=== PATIENT | male | born 1945 | race Caucasian/White ===

== ENCOUNTER 2020-01-31 22:30 | Emergency (ER) | payer MEDICARE, OTHER, SELFPAY ==
[2020-01-31 22:34] VITALS: BP 162/105; PULSE 85; RESP 16; TEMP 36.6; O2SAT 97; BMI 33.6
[2020-01-31 22:47] VITALS: PULSE 83; RESP 17; O2SAT 97
--- NOTE | 2020-01-31 22:47 | DI.RAD.S_ITS ---
PROCEDURE: XR CHEST 1V INDICATIONS: chest pain, Shortness of breath, fatigue TECHNIQUE: One view of the chest was acquired. COMPARISON: None. FINDINGS: Surgical changes and devices: None. Lungs and pleura: Lungs are clear. No pleural effusions or pneumothorax. Mediastinum: Mediastinal contours appear normal. Heart size is normal. Bones and chest wall: No suspicious bony lesions. Overlying soft tissues appear unremarkable. IMPRESSION: No acute cardiopulmonary disease process. Dictated by: Becky Javier MD, PhD on 02/01/2020 at 7:43 Approved by: Becky Javier MD, PhD on 02/01/2020 at 7:44
[2020-01-31] MEDS: ASPIRIN 81 MG CHEW TAB 324 MG PO (22:57)
[2020-01-31] MEDS: SODIUM CHLORIDE 0.9% 1,000 ML 150 ML IV (22:57)
[2020-01-31 23:00] VITALS: BP 116/87; PULSE 78; RESP 11; O2SAT 95
[2020-01-31 23:02] LABS: Add Manual Diff / Slide Review NO; Basophils Absolute Auto 0 /uL (0-100); Basophils Percent Auto 0.8 % (0-2); Eosinophils Absolute Auto 100 /uL (0-450); Eosinophils Percent Auto 2.2 % (2-4); Hematocrit 43.6 % (41-53); Hemoglobin 14.7 g/dL (13.5-17.5); Lymphocytes Absolute Auto 1500 /uL (1100-4500); Lymphocytes Percent Auto 22.4 % (25-40); Mean Corpuscular HGB Conc 33.8 % (30-36); Mean Corpuscular Hemoglobin 32.7 PG (26-34); Mean Corpuscular Volume 96.8 fL (80-100); Monocytes Absolute Auto 600 /uL (0-900); Monocytes Percent Auto 9.3 % (3-14); Neutrophils Absolute Auto 4200 /uL (1500-7000); Neutrophils Percent Auto 65.3 % (50-75); Platelet Count 252 X10^3/uL (150-400); White Blood Cell Count 6.5 X10^3/uL (4.5-11.0)
[2020-01-31 23:09] LABS: Creatine Kinase 161 U/L (55-170)
[2020-01-31 23:10] LABS: Alanine Aminotransferase 31 IU/L (<50); Albumin 4.5 g/dL (3.5-5.0); Albumin Globulin Ratio 1.4 (1.0-2.8); Alkaline Phosphatase 61 U/L (38-126); Aspartate Aminotransferase 32 IU/L (17-59); BUN Creatinine Ratio 17.6 (6-22); Bilirubin Total 0.9 mg/dL (0.2-1.3); Blood Urea Nitrogen 12 mg/dL (9-20); Calcium 9.2 mg/dL (8.4-10.2); Carbon Dioxide 27 mmol/L (22-32); Chloride 105 mmol/L (98-107); Estimated Glomerular Filt Rate > 60.0 mL/min (>60); Globulin 3.2 g/dL (1.7-4.1); Glucose 113 mg/dL (80-110); HEMOLYSIS < 15 (0-50); Lipase 30 U/L (23-300); Potassium 3.9 mmol/L (3.4-5.1); Sodium 136 mmol/L (137-145); Total Protein 7.7 g/dL (6.3-8.2)
[2020-01-31 23:21] LABS: NT-proBNP (BNP-Adult 18+) 362 pg/mL (<450); Troponin I < 0.012 ng/mL (0.01-0.034)
[2020-01-31 23:25] LABS: CKMB % Relative Index 1.6 % (1.5-5.0); Creatine Kinase MB 2.59 ng/mL (<2.37)
[2020-01-31 23:30] VITALS: BP 110/80; PULSE 71; RESP 11; O2SAT 92
[2020-02-01] VITALS: BP 124/88; PULSE 69; RESP 12; O2SAT 95
[2020-02-01 00:29] VITALS: PULSE 75; RESP 12; O2SAT 94
[2020-02-01 00:30] VITALS: BP 136/87; PULSE 70; RESP 10; O2SAT 95
[2020-02-01 01:00] VITALS: BP 129/86; PULSE 64; RESP 11; O2SAT 95
[2020-02-01 01:20] LABS: Troponin I < 0.012 ng/mL (0.01-0.034)
--- NOTE | 2020-02-01 01:21 | ED_ITS ---
HPI - General Adult General Chief complaint: Hypertension Stated complaint: elevated pressure Time Seen by Provider: 01/31/20 22:35 Source: patient and family Mode of arrival: Ambulatory Limitations: no limitations History of Present Illness HPI narrative: 74M nonsmoker with history of hypertension presents with his at the request of his primary care provider. Over the course of the day he has noted his blood pressure to be elevated, more than normal, at times in the 170s. He denies any headache or blurred vision or any focal neurologic findings. He did have a vague central chest pressure that started around the same time that his blood pressure became elevated. He denies any provocation, palliation or radiation of this discomfort. He denies any exertional symptoms. He denies any history of the same. He denies any change in medications or diet. Onset (ago): hour(s) Location: chest Radiation: non-radiation Quality: aching Pain Consistency: constant Relieving factors: none Exacerbating factors: none Associated symptoms: denies other symptoms Treatments prior to arrival: none Review of Systems Constitutional Constitutional: Denies chills, Denies fatigue, Denies fever(s), Denies frequent falls, Denies lethargy and Denies weakness Eyes Eyes: Denies change in vision, Denies eye discharge, Denies irritation and Denies loss of vision ENT Ears, Nose, Mouth, and Throat: Denies change in voice, Denies dizziness, Denies neck pain, Denies sore throat and Denies throat swelling Cardiovascular Cardiovascular: Reports chest pain, Denies irregular heart rhythm, Denies lightheadedness, Denies palpitations, Denies dyspnea, Denies dyspnea on exertion and Denies orthopnea Respiratory Respiratory: Denies cough, Denies dyspnea, Denies dyspnea on exertion and Denies wheezing Gastrointestinal Gastrointestinal: Denies abdominal pain, Denies change in bowel habits, Denies diarrhea, Denies nausea and Denies vomiting Musculoskeletal Musculoskeletal: Denies neck pain and Denies numbness Integumentary/Breasts Skin/Breast: Denies pruritus, Denies erythema, Denies rash and Denies wounds Neurologic Neurologic: Denies behavioral changes, Denies confusion, Denies dizziness, Denies frequent falls, Denies loss of vision, Denies numbness and Denies weak ness Psychiatric Psychiatric: Denies anxiety, Denies behavioral changes, Denies confusion, Denies depression, Denies homicidal ideation and Denies suicidal ideation Endocrine Endocrine: Denies fatigue, Denies flushing and Denies palpitations Hematologic/Lymphatic Hematologic/Lymphatic: Denies easy bruising Allergic/Immunologic Allergic/Immunologic: Denies urticaria, Denies throat swelling and Denies wheezing Patient History Social History Smoking Status: Former smoker Smoking Status: Former smoker alcohol intake frequency: 3 or more drinks per day Substance Use Type: does not use Exam Narrative Exam Narrative: GENERAL: [74] year old patient appears stated age. Well-nourished, well-developed patient, in mild distress. HEAD: Atraumatic. Normocephalic. EYES: Pupils equal round and reactive. Extraocular motions intact. No scleral icterus. No injection or drainage. ENT: Nose without bleeding, purulent drainage. Throat without erythema, tonsillar hypertrophy or exudate. Airway patent. NECK: Trachea midline. Non tender CARDIOVASCULAR: Regular rate and rhythm without murmurs, gallops, or rubs. RESPIRATORY: Clear to auscultation. Breath sounds equal bilaterally. No wheezes, rales, or rhonchi. GASTROINTESTINAL: Abdomen soft, non-tender, nondistended. EXTREMITIES: No edema or joint tenderness. BACK: Nontender without deformity or crepitance. No flank tenderness. NEURO: AOx3. SKIN: No rash or erythema of visible areas Initial Vital Signs Initial Vital Signs: Vital Signs Temperature 97.9 F 01/31/20 22:34 Pulse Rate 85 01/31/20 22:34 Respiratory Rate 16 01/31/20 22:34 Blood Pressure 162/105 H 01/31/20 22:34 Pulse Oximetry 97 01/31/20 22:34 Course Course Course Narrative: With the duration of his visit patient's blood pressure dropped into the 120s, along with his his chest pain completely resolved. His examination, history, labs are suggestive of blood pressure as the cause of his discomfort. EKGs are nonischemic, troponin is negative. He has been given return precautions and had questions answered to his apparent satisfaction and plans to follow with his primary care provider Orders Ordered: ED Orders 01/31/20 22:47 XR chest 1V Stat EKG-12 Lead Stat 01/31/20 22:52 Complete Blood Count AUTO DIFF Stat Comprehensive Metabolic Panel Stat Lipase Stat NT-proBNP (BNP-Adult 18+) Stat Prothrombin Time INR Stat Troponin & CK Cardiac Panel Stat 02/01/20 00:50 Troponin I Stat Discontinued Medications Aspirin (Aspirin 81 Mg Chew Tab) 324 mg PO NOW ONE Stop: 01/31/20 22:48 Last Admin: 01/31/20 22:57 Dose: 324 mg Documented by: GONZALES Sodium Chloride (Normal Saline 0.9%) 1,000 mls @ 150 mls/hr IV CONT BOZENA Last Infusion: 02/01/20 01:30 Dose: 0 mls/hr Documented by: Admin: 01/31/20 22:57 Dose: 150 mls/hr Documented by: GONZALES Vital Signs Vital signs: Vital Signs - 8 hr 01/31/20 23:30 02/01/20 00:00 02/01/20 00:29 Pulse Rate 71 69 75 Respiratory Rate 11 L 12 12 Blood Pressure 110/80 124/88 Pulse Oximetry 92 95 94 02/01/20 00:30 02/01/20 01:00 Pulse Rate 70 64 Respiratory Rate 10 L 11 L Blood Pressure 136/87 129/86 Pulse Oximetry 95 95 Medical Decision Making Lab Data Result diagrams: 01/31/20 22:52 01/31/20 22:52 Labs: Lab Results 01/31/20 01/31/20 01/31/20 Range/Units 22:52 22:52 22:52 WBC 6.5 (4.5-11.0) X10^3/uL RBC 4.50 (4.5-5.9) X10^6/uL Hgb 14.7 (13.5-17.5) g/dL Hct 43.6 (41-53) % MCV 96.8 (80-100) fL MCH 32.7 (26-34) PG MCHC 33.8 (30-36) % RDW 13.0 (11.6-14.8) % Plt Count 252 (150-400) X10^3/uL Neut % (Auto) 65.3 (50-75) % Lymph % (Auto) 22.4 L (25-40) % Huntington % (Auto) 9.3 (3-14) % Eos % (Auto) 2.2 (2-4) % Baso % (Auto) 0.8 (0-2) % Neut # (Auto) 4200 (4051-0689) /uL Lymph # (Auto) 1500 (2166-2979) /uL Huntington # (Auto) 600 (0-900) /uL Eos # (Auto) 100 (0-450) /uL Baso # (Auto) 0 (0-100) /uL PT 12.0 (10.1-12.7) SECONDS INR 1.0 (0.9-1.3) Sodium 136 L (137-145) mmol/L Potassium 3.9 (3.4-5.1) mmol/L Chloride 105 (98-107) mmol/L Carbon Dioxide 27 (22-32) mmol/L BUN 12 (9-20) mg/dL Creatinine 0.68 (0.66-1.25) mg/dL Estimated GFR > 60.0 (>60) mL/min BUN/Creatinine Ratio 17.6 (6-22) Glucose 113 H (80-110) mg/dL Calcium 9.2 (8.4-10.2) mg/dL Total Bilirubin 0.9 (0.2-1.3) mg/dL AST 32 (17-59) IU/L ALT 31 (<50) IU/L Alkaline Phosphatase 61 (38-126) U/L Total Creatine Kinase 161 (55-170) U/L CK-MB (CK-2) 2.59 H (<2.37) ng/mL CK-MB (CK-2) Rel Index 1.6 (1.5-5.0) % Troponin I < 0.012 (0.01-0.034) ng/mL NT-Pro-B Natriuret Pep 362 (<450) pg/mL Total Protein 7.7 (6.3-8.2) g/dL Albumin 4.5 (3.5-5.0) g/dL Globulin 3.2 (1.7-4.1) g/dL Albumin/Globulin Ratio 1.4 (1.0-2.8) Lipase 30 (23-300) U/L 01/31/ Range/Units 00:50 WBC (4.5-11.0) X10^3/uL RBC (4.5-5.9) X10^6/uL Hgb (13.5-17.5) g/dL Hct (41-53) % MCV (80-100) fL MCH (26-34) PG MCHC (30-36) % RDW (11.6-14.8) % Plt Count (150-400) X10^3/uL Neut % (Auto) (50-75) % Lymph % (Auto) (25-40) % Huntington % (Auto) (3-14) % Eos % (Auto) (2-4) % Baso % (Auto) (0-2) % Neut # (Auto) (7960-0337) /uL Lymph # (Auto) (0819-6580) /uL Huntington # (Auto) (0-900) /uL Eos # (Auto) (0-450) /uL Baso # (Auto) (0-100) /uL PT (10.1-12.7) SECONDS INR (0.9-1.3) Sodium (137-145) mmol/L Potassium (3.4-5.1) mmol/L Chloride (98-107) mmol/L Carbon Dioxide (22-32) mmol/L BUN (9-20) mg/dL Creatinine (0.66-1.25) mg/dL Estimated GFR (>60) mL/min BUN/Creatinine Ratio (6-22) Glucose (80-110) mg/dL Calcium (8.4-10.2) mg/dL Total Bilirubin (0.2-1.3) mg/dL AST (17-59) IU/L ALT (<50) IU/L Alkaline Phosphatase (38-126) U/L Total Creatine Kinase (55-170) U/L CK-MB (CK-2) (<2.37) ng/mL CK-MB (CK-2) Rel Index (1.5-5.0) % Troponin I < 0.012 (0.01-0.034) ng/mL NT-Pro-B Natriuret Pep (<450) pg/mL Total Protein (6.3-8.2) g/dL Albumin (3.5-5.0) g/dL Globulin (1.7-4.1) g/dL Albumin/Globulin Ratio (1.0-2.8) Lipase (23-300) U/L Discharge Plan Departure Patient Disposition: Home Clinical Impression: Hypertension Qualifiers: Hypertension type: essential hypertension Qualified Code(s): I10 - Essential (primary) hypertension Instructions: DI for High Blood Pressure Activity Restrictions/Additional Instructions: *You have been diagnosed with [high blood pressure with related chest pain] *What to do: *Take medications as directed *Follow up with your primary care provider in 2-3 days, call for an appointment. Let them know you were seen in the Emergency Department and that we ask that you be seen in follow up *Return to ER if you should have any new, worsening or concerning symptoms
== END 2020-02-01 01:33 | disposition home or self-care (01) ==
PROVIDERS: Emergency Provider Emergency Medicine
DX: I10 Essential (primary) hypertension (principal); R07.9 Chest pain, unspecified
CPT/HCPCS: 36415; 71045; 80053; 82550; 82553; 83690; 83880; 84484; 85025; 85610; 93005; 96360; 96361; 99283; 99284

== ENCOUNTER → 2020-10-09 15:30 | Outpatient (CLI) | payer MEDICARE, OTHER, SELFPAY | PROVIDERS: Visit Provider Physician Assistant | DX: B99.9 Unspecified infectious disease (principal) | CPT/HCPCS: 87070; 87075; 87205 ==